=== PATIENT | female | born 1995 | race Caucasian/White ===

== ENCOUNTER 2016-12-22 20:56 | Emergency (ER) | payer SELFPAY ==
[~2016-12-22] VITALS: Ht 160 cm; Wt 48.0 kg
[~2016-12-22 20:56] MED LIST: CITA20TA4 PO; HYDR25 PO; SERO50TA PO
--- NOTE | 2016-12-22 21:17 | PD ---
HPI Chief Complaint: ba Time Seen by Provider: 21:17 Travel History International Travel<30 days: No Contact w/Intl Traveler<30days: No Traveled to known affect area: No History of Present Illness HPI 21 year-old female presents to the emergency department under Wan act for psychiatric evaluation. Patient states that she was angry with her mother following an argument and verbalized wanting to hurt herself. Patient states she said this "because she is stupid." She states she did not mean it she was just angry. She denies any psychiatric or medical history. However report shows that she has history of anxiety and depression. She has no other symptoms reported this time. PFSH Past Medical History Medical History: Denies Significant Hx ADHD: No Cancer: No Cardiovascular Problems: No Diabetes: No Headaches: No Psychiatric: No Migraines: No Seizures: No Thyroid Disease: No Ulcer: No Social History Alcohol Use: Yes Tobacco Use: Yes Substance Use: Yes Allergies-Medications (Allergen,Severity, Reaction): Coded Allergies: Penicillin (Verified Allergy, Intermediate, Hives, 01/21/14) Reported Meds & Prescriptions Reported Meds & Active Scripts Active No Active Prescriptions or Reported Medications Review of Systems Except as stated in HPI: all other systems reviewed are Neg Physical Exam Narrative GENERAL: Well-nourished female patient, in no acute distress SKIN: Focused skin assessment warm/dry. HEAD: Atraumatic. Normocephalic. EYES: Pupils equal and round. No scleral icterus. No injection or drainage. ENT: No nasal bleeding or discharge. Mucous membranes pink and moist. NECK: Trachea midline. No JVD. CARDIOVASCULAR: Regular rate and rhythm. No murmur appreciated. RESPIRATORY: No accessory muscle use. Clear to auscultation. Breath sounds equal bilaterally. GASTROINTESTINAL: Abdomen soft, non-tender, nondistended. Hepatic and splenic margins not palpable. MUSCULOSKELETAL: No obvious deformities. No clubbing. No cyanosis. No edema. NEUROLOGICAL: Awake and alert. No obvious cranial nerve deficits. Motor grossly within normal limits. Normal speech. Data Data Last Documented VS Vital Signs Date Time Temp Pulse Resp B/P Pulse Ox O2 Delivery O2 Flow Rate FiO2 12/23/16 06:10 80 18 100/56 99 12/22/16 21:26 98.2 Orders Complete Blood Count With Diff (12/22/16 21:10) Basic Metabolic Panel (Bmp) (12/22/16 21:10) Ed Urine Pregnancytest Poc (12/22/16 21:10) Psych Screen (12/22/16 21:10) Drug Screen, Random Urine (12/22/16 21:10) Alcohol (Ethanol) (12/22/16 21:10) Diet Regular Basic (12/23/16 Breakfast) Labs Laboratory Tests Test 12/22/16 12/22/16 21:23 22:10 White Blood Count 8.6 TH/MM3 Red Blood Count 4.76 MIL/MM3 Hemoglobin 13.1 GM/DL Hematocrit 39.1 % Mean Corpuscular Volume 82.0 FL Mean Corpuscular Hemoglobin 27.4 PG Mean Corpuscular Hemoglobin 33.4 % Concent Red Cell Distribution Width 13.7 % Platelet Count 400 TH/MM3 Mean Platelet Volume 7.7 FL Neutrophils (%) (Auto) 51.8 % Lymphocytes (%) (Auto) 38.2 % Monocytes (%) (Auto) 7.0 % Eosinophils (%) (Auto) 2.2 % Basophils (%) (Auto) 0.8 % Neutrophils # (Auto) 4.5 TH/MM3 Lymphocytes # (Auto) 3.3 TH/MM3 Monocytes # (Auto) 0.6 TH/MM3 Eosinophils # (Auto) 0.2 TH/MM3 Basophils # (Auto) 0.1 TH/MM3 CBC Comment DIFF FINAL Differential Comment Sodium Level 144 MEQ/L Potassium Level 3.6 MEQ/L Chloride Level 110 MEQ/L Carbon Dioxide Level 22.8 MEQ/L Anion Gap 11 MEQ/L Blood Urea Nitrogen 8 MG/DL Creatinine 0.52 MG/DL Estimat Glomerular Filtration 150 ML/MIN Rate Random Glucose 82 MG/DL Calcium Level 9.1 MG/DL Ethyl Alcohol Level 98 MG/DL Urine Opiates Screen NEG Urine Barbiturates Screen NEG Urine Amphetamines Screen NEG Urine Benzodiazepines Screen POS Urine Cocaine Screen POS Urine Cannabinoids Screen NEG MDM Medical Decision Making Medical Screen Exam Complete: Yes Emergency Medical Condition: Yes Medical Record Reviewed: Yes Differential Diagnosis Mood disorder versus personality disorder versus adjustment reaction disorder Narrative Course 21 year-old female presents to the emergency department under Wan act for psychiatric evaluation. Patient appears without distress. She adamantly denies suicidal homicidal ideations. Lab work is without acute concern. Toxicology is positive for benzodiazepine and cocaine. Patient is medically cleared to undergo psychiatric screening for further evaluation and disposition. Diagnosis Primary Impression: Adjustment disorder Qualified Code: F43.20 - Adjustment disorder, unspecified type Additional Impression: Substance abuse Scripts No Active Prescriptions or Reported Meds Condition: Dotty Bolivar December 22, 2016 21:17
[2016-12-22 21:26] VITALS: BP 123/79; PULSE 82; RESP 18; TEMP 98.2; O2SAT 99
[2016-12-22 21:53] LABS: AUTOMATED NEUTROPHIL # 4.5 TH/MM3 (1.8-7.7); BASOPHIL # 0.1 TH/MM3 (0-0.2); BASOPHIL % 0.8 % (0.0-2.0); EOSINOPHIL # 0.2 TH/MM3 (0-0.4); EOSINOPHIL % 2.2 % (0.0-4.0); HEMATOCRIT 39.1 % (35.0-46.0); HEMO FLAGS DIFF FINAL; LYMPH % 38.2 % (9.0-44.0); LYMPHOCYTE # 3.3 TH/MM3 (1.0-4.8); MEAN CORPUSCULAR HEMOGLOBIN 27.4 PG (27.0-34.0); MEAN CORPUSCULAR HGB CONC 33.4 % (32.0-36.0); NEUT % 51.8 % (16.0-70.0); PLATELET COUNT 400 TH/MM3 (150-450); RED BLOOD COUNT 4.76 MIL/MM3 (4.00-5.30); RED CELL DISTRIBUTION WIDTH 13.7 % (11.6-17.2); WHITE BLOOD COUNT 8.6 TH/MM3 (4.0-11.0)
[2016-12-22 22:14] LABS: BICARBONATE 22.8 MEQ/L (21.0-32.0); POTASSIUM 3.6 MEQ/L (3.5-5.1)
[2016-12-22 23:10] LABS: AMPHETAMINE, URINE NEG (NEG); BARBITURATES, URINE NEG (NEG); COCAINE, URINE POS (NEG)
[2016-12-23 02:28] VITALS: BP 110/69; PULSE 89; RESP 18
[2016-12-23 06:10] VITALS: BP 100/56; PULSE 80; RESP 18; O2SAT 99
[2016-12-23 10:05] VITALS: BP 98/52; PULSE 82; RESP 18; TEMP 98.5; O2SAT 100
[2016-12-23 14:10] VITALS: BP 113/58; PULSE 71; RESP 18; TEMP 98.6; O2SAT 100
--- NOTE | 2016-12-24 12:27 | PD.CONS ---
Provisional Diagnosis Admission Date Cushman I. Substance induced mood disorder, polysubstance dependence, including alcohol, benzodiazepines and cocaine, history of anxiety Cushman II. Deferred Cushman III. No significant medical history History of Present Illness Service Psychiatry Consult Requested By Primary Care Physician No Primary Care Physician HPI The patient is a 21-year-old woman, domiciled with her mother, unemployed, with psychiatric history of anxiety, polysubstance dependence, including benzodiazepines, alcohol and cocaine, 1 previous psychiatric hospitalization in 2013, no previous suicidal attempts, no somatic and medical history, who presents to the emergency department under Wan act for psychiatric evaluation. Patient states that she was angry with her mother following an argument and verbalized wanting to hurt herself. Patient states she said this "because she is stupid." She states she did not mean it she was just angry. She denies any psychiatric or medical history. However report shows that she has history of anxiety and depression. She has no other symptoms reported this time. But today on psychiatric evaluation patient is now clinically sober, reports good mood, she is in a good spirit, calm and cooperative, she says that she was just upset with her mother but she never actually intended or thoughts of committing suicide. Patient denies depressive symptoms, she denies anxiety, she denies perceptual disturbances, she denies psychosis. She denies suicidal and homicidal ideation at this moment, she denies visual and auditory hallucinations. She is oriented 3, no paranoia, no delusions, no agitation or aggressive behavior present. Patient reports daily use of cocaine and alcohol, occasional use of Xanax. Review of Systems Constitutional: DENIES: Diaphoretic episodes, Fatigue, Fever, Weight gain, Weight loss, Chills, Dizziness, Change in appetite, Night Sweats Endocrine: DENIES: Abnorml menstrual pattern, Heat/cold intolerance, Polydipsia , Polyuria, Polyphagia Eyes: DENIES: Blurred vision, Diplopia, Eye inflammation, Eye pain, Vision loss , Photosensitivity, Double Vision Ears, nose, mouth, throat: DENIES: Tinnitus, Hearing loss, Vertigo, Nasal discharge, Oral lesions, Throat pain, Hoarseness, Ear Pain, Running Nose, Epistaxis, Sinus Pain, Toothache, Odynophagia Cardiovascular: DENIES: Chest pain, Palpitations, Syncope, Dyspnea on Exertion , PND, Lower Extremity Edema, Orthopnea, Claudication Gastrointestinal: DENIES: Abdominal pain, Black stools, Bloody stools, Constipation, Diarrhea, Nausea, Vomiting, Difficulty Swallowing, Anorexia Genitourinary: DENIES: Abnormal vaginal bleeding, Dysmenorrhea, Dyspareunia, Sexual dysfunction, Urinary frequency, Urinary incontinence, Urgency, Hematuria , Dysuria, Nocturia, Vaginal discharge Musculoskeletal: DENIES: Joint pain, Muscle aches, Stiffness, Joint Swelling, Back pain, Neck pain Integumentary: DENIES: Abnormal pigmentation, Pruritus, Rash, Nail changes, Breast masses, Breast skin changes, Nipple discharge Hematologic/lymphatic: DENIES: Bruising, Lymphadenopathy Immunologic/allergic: DENIES: Eczema, Urticaria Neurologic: DENIES: Abnormal gait, Headache, Localized weakness, Paresthesias, Seizures, Speech Problems, Tremor, Poor Balance Psychiatric: DENIES: Anxiety, Confusion, Mood changes, Depression, Hallucinations, Agitation, Suicidal Ideation, Homicidal Ideation, Delusions Past Family Social History Coded Allergies: Penicillin (Verified Allergy, Intermediate, Hives, 01/21/14) Discontinued Scripts Citalopram Hydrobromide 20 Mg Tab20 Mg PO 1 08/06 #45 TAB Ref 1 Prov:Afia Aguirre MD 09/16/14 Hydroxyzine Hcl (Atarax 25 Mg Tab)25 Mg Tab25 Mg PO q 8hrs PRN (anxiety) #30 TAB Ref 1 Prov:Afia Aguirre MD 09/07/14 Quetiapine Fumarate 50 mg (Seroquel 50 mg)50 Mg Tab1 Tab PO 08/06-1 tab HS #30 TAB Ref 1 Prov:Afia Aguirre MD 09/07/14 Family History Her father has PTSD and bipolar disorder Social History Patient was born and raised in [place], she lives in [facility] with her mother, she is unemployed, single, her highest level of education is high school Patient's Strengths (min. 2) Verbal communication Physical Exam No tremors, no EPS, no psychomotor retardation or agitation, no withdrawal present Vital Signs Vital Signs Date Time Temp Pulse Resp B/P Pulse Ox O2 Delivery O2 Flow Rate FiO2 12/23/16 14:10 98.6 71 18 113/58 100 Room Air Lab Results BAL 98 Toxicology positive for benzodiazepine and cocaine Mental Status Examination Appearance Skinny woman, age appearing, good hygiene, [facility], calm, and cooperative Speech: Unremarkable Memory: Unremarkable Thought Process: Logical Thought Content: Unremarkable Hallucination Type: None Suicidal Ideation: No Previous Suicide Attempts: No Homicidal Ideation: No Previous Homicide Attempts: No Insight: Good Affect: Good Mood: Appropriate Motor Activity: Normal gait Assessment & Plan Problem List: (1) Substance induced mood disorder Assessment & Plan: On psychiatric evaluation today patient does not present any evidence of depression, anxiety, sandy or psychosis. She denies suicidal or homicidal ideation, she denies visual and auditory hallucinations. On longitudinal observation and they are patient has remained calm, cooperative, without any episodes of agitation, aggressive behavior, paranoia or delusions. Patient is logical, coherent and relevant. Recent suicidal statements to her mother was most probably the result of anger aggravated by substance intoxication. She does not meet criteria for psychiatric admission at this moment. Extensive support, motivation and psychoeducation provided. Wan act will be lifted. ICD Code: F19.94 Assessment & Plan Estimated LOS: Tal Perry MD December 24, 2016 12:27
== END 2016-12-23 17:00 | disposition home or self-care (01) ==
LOC: NEPD 20:56 → NEPJ 12-23 17:00
DX: F19.24 Other psychoactive substance dependence with psychoactive substance-induced mood disorder (principal)
CPT/HCPCS: 80048; 80307; 84703; 85025; 99283